=== PATIENT | male | born 1955 | race Hispanic/Latino ===

== ENCOUNTER 2017-05-07 10:27 | Inpatient (IN) | payer SELFPAY ==
[~2017-05-07] VITALS: Ht 172.7 cm; Wt 69.0 kg
--- NOTE | 2017-05-07 11:02 | NUR ---
PT AMBULATORY TO ROOM 15.
--- NOTE | 2017-05-07 12:13 | NUR ---
PT RESTING ON STRETCHER. NO NV. ADVISED OF CONTINUED WAIT TIME.
--- NOTE | 2017-05-07 13:03 | NUR ---
PT RESTING ON STRETCHER AWAITING FURTHER CARE.
[2017-05-07 13:58] LABS: HEMATOCRIT 43.7 % (39.0-50.0); IMMATURE GRANULOCYTES 0.3 % (0.0-1.0); MEAN CELL VOLUME 92.8 fL CALC (80.0-100.0); MEAN CORPUSCULAR HGB 31.8 pG CALC (26.0-32.0); MEAN CORPUSCULAR HGB CONC 34.3 g/L CALC (32.0-36.0); NEUT# 5.2 thou/uL (1.82-7.42); RED BLOOD COUNT 4.71 mill/uL (4.70-6.10); RED CELL DISTRI WIDTH 12.6 % (11.5-15.5)
[2017-05-07 14:08] LABS: URINE BILIRUBIN - DIPSTICK NEGATIVE (NEGATIVE); URINE BLOOD DIPSTICK NEGATIVE (NEGATIVE); URINE COLOR YELLOW; URINE GLUCOSE - DIPSTICK NEGATIVE (NEGATIVE); URINE KETONE NEGATIVE (NEGATIVE); URINE LEUK ESTERASE NEGATIVE (NEGATIVE); URINE NITRITE - DIPSTICK NEGATIVE (Negative); URINE PROTEIN - DIPSTICK NEGATIVE (NEG-TRACE); URINE SPECIFIC GRAVITY <=1.005; URINE UROBILINOGEN - DIPSTICK 0.2 E.U./dL (0.2)
[2017-05-07 14:11] LABS: ALBUMIN 4.6 g/dL (3.2-5.0); ALKALINE PHOSPHATASE 99 u/l (38-126); AMYLASE 70 u/l (30-110); ANION GAP 17 (6-22 (CALC)); BILIRUBIN, TOTAL 0.6 mg/dL (0.0-1.4); BUN 9 mg/dL (9-20); BUN/CREATININE RATIO 14 (12-20 (CALC)); CARBON DIOXIDE 26 mmol/l (22-30); CHLORIDE 105 mmol/l (95-108); CREATININE 0.7 mg/dL (0.7-1.3); GFR > 60 ML/MIN (>=60 (CALC)); GFR FOR AFR.AMER. > 60 ML/MIN (>=60 (CALC)); LIPASE 48 u/l (23-300); POTASSIUM 4.3 mmol/l (3.5-5.1); SGOT/AST 35 u/l (17-59); SGPT/ALT 35 u/l (21-72); SODIUM 143 mmol/l (137-146); TOTAL PROTEIN 7.5 g/dL (6.3-8.2)
[2017-05-07 14:12] LABS: URINE CLARITY CLEAR
[2017-05-07 14:21] LABS: MYOGLOBIN 30 ng/mL (0 - 121)
--- NOTE | 2017-05-07 14:51 | NUR ---
PT RETURNED FROM CT ADVISED OF WAIT TIME. IV FLUIDS CONTINUE.
--- NOTE | 2017-05-07 15:55 | NUR ---
DR WALLER SPOKE WITH DR HOUGH REGARDING PATIENT.
--- NOTE | 2017-05-07 17:14 | NUR ---
PT CONSUMING THIRD CUP OF CONTRAST. TOLERATES WELL. NO APPARENT DISTRESS. NO N/V.
--- NOTE | 2017-05-07 19:21 | NUR ---
REPORT CALLED TO THOMAS, NURSE ON MEDSUR. ADVISED OF ALL FLUIDS, PROCEDURES AND HEALTHY IV SITE.
--- NOTE | 2017-05-07 19:45 | NUR ---
PT TRANSFERRED TO FLOOR VIA STRETCHER ACCOMPANIED BY SELENA GRAY AND FAMILY;PT AMBULATED WITH STEADY GAIT TO STANDING SCALE AND BEDSIDE;WT AND VS OBTAINED;PT TRISTANIAN SPEAKING ONLY;ASSESSMENT TRANSLATED BY SELENA CORONA;ASSESSMENT COMPLETED;PT REPORTS HAVING ABDOMINAL PAIN RATING 4/10 ON THE PAIN SCALE FOR 3 DAYS;LAST BM 05/03/17;ABDOMEN IS DISTENDED AND SOFT UPON PALPATION;TENDER IN LEFT LOWER QUAD;PT DENIES NAUSEA;PAIN SCALE AND REPORTING EDUCATED AND PT VERBALIZES UNDERSTANDING;RESPIRATIONS EVEN AND UNLABORED ON RA;CLEAR LUNG SOUNDS;PT EDUCATED ON NPO DIET STATUS;#20G TO LAC FLUSHED AND PATENT,SITE APPEARS HEALTHY;PERRLA;STRONG PEDAL PULSES;SKIN INTACT;PT ORIENTED TO ROOM AND CALL LIGHT SYSTEM;URINAL AT BEDSIDE;SAFETY PRECAUTIONS REINFORCED WITH BED IN THE LOWEST POSITION;CALL LIGHT IN REACH;WILL CONTINUE TO MONITOR
--- NOTE | 2017-05-07 19:45 | NUR ---
TO FLOOR WITHOUT INCIDENT.
--- NOTE | 2017-05-07 19:50 | NUR ---
ORDER RECEIVED FOR NG TUBE PLACEMENT BY VITOR MCCONNELLRP
[2017-05-07 19:59] VITALS: BP 163/85; BP 171/88
--- NOTE | 2017-05-07 21:45 | NUR ---
#14F NG TUBE PLACED AND STARTED TO LIS;PT TOLERATED WELL;200CC OBTAINED IMMEDIATELY OF UNDIGESTED FOOD;WILL CONTINUE TO MONITOR
--- NOTE | 2017-05-07 23:55 | NUR ---
PT APPEARS TO BE SLEEPING IN SEMI FOWLERS POSITION;NO S/S OF DISTRESS NOTED;RESPIRATIONS EVEN AND UNLABORED ON RA;NG TUBE PATENT RUNNING TO LIS;SAFETY PRECAUTIONS IN PLACE;CALL LIGHT IN REACH;WILL CONTINUE TO MONITOR
--- NOTE | 2017-05-08 00:16 | NUR ---
PT COMPLAINS OF ABDOMINAL PAIN RATING 8/10 ON THE PAIN SCALE AND REQUESTS PAIN MEDICATION;ABDOMEN DISTENDED AND FIRM AT THIS TIME; NOTIFIED AND NEW ORDERS RECEIVED
--- NOTE | 2017-05-08 00:40 | NUR ---
PT MEDICATED WITH MORPHINE 4MG AND ZOFRAN 4MG IVP FOR ABDOMINAL PAIN RATING 8/10 ON THE PAIN SCALE;WILL CONTINUE TO MONITOR FOR EFFECTIVENESS
--- NOTE | 2017-05-08 03:25 | NUR ---
PT COMPLAINS OF SEVERE ABDOMINAL/BACK PAIN RATING 8/10 ON THE PAIN SCALE; NOTIFIED AND NEW ORDER RECEIVED
--- NOTE | 2017-05-08 03:40 | NUR ---
PT MEDICATED WITH DILAUDID 1MG IVP FOR ABDOMINAL/BACK PAIN RATING 8/10 ON THE PAIN SCALE;ABDOMEN TENDER;NG TUBE PATENT RUNNING AT LIS;NS INFUSING WELL TO LAC;RESPIRATIONS EVEN AND UNLABORED ON RA;COMMODE AT BEDSIDE;FALL PRECAUTIONS IN PLACE;WILL CONTINUE TO MONITOR
--- NOTE | 2017-05-08 04:05 | NUR ---
PT REPORTS THAT ABDOMINAL PAIN IS SUBSIDING NOW RATING 4/10 ON THE PAIN SCALE
--- NOTE | 2017-05-08 05:15 | NUR ---
PT APPEARS TO BE SLEEPING WITH EYES CLOSED;NO S/S OF DISTRESS NOTED;HOB IN SEMI FOWLERS POSITION WITH NG TUBE PATENT;WILL CONTINUE TO MONITOR
[2017-05-08 05:37] VITALS: BP 151/76
[2017-05-08 07:50] VITALS: BP 156/84
--- NOTE | 2017-05-08 07:50 | NUR ---
PT.UPRIGHT IN BED. PT.IS STILL NPO AND ASKING FOR WATER TO DRINK/PROVIDED MOUTH SWABS TO MOISTEN MOUTH. V/S ASSESSED. PT.C/O PAIN 8/10 IN ABDOMEN. ABD IS HARD AND DISTENDED. NG TUBE ON LIS. CALL LIGHT AT SIDE. WILL MEDICATED FOR PAIN.
--- NOTE | 2017-05-08 08:23 | NUR ---
MEDICATED PT.FOR PAIN 12/17 ORDERS PROVIDE.
--- NOTE | 2017-05-08 09:04 | NUR ---
I was informed about the consult ordered for and spoke to the INTERMEDIATE CARD TENDER, Tracey Carrington who already talked to about the consult. Spoke to her @ 0900.
--- NOTE | 2017-05-08 11:40 | NUR ---
PT.MEDICATED FOR PAIN AT THIS TIME. NG TUBE PLACEMENT CONFIRMED. SET AT LIS. PT.C/O PAIN 12/17 IN THE ABDOMEN. ASSISTED PT.UP TO BEDSIDE COMMODE, NO BM AT THIS TIME. CALL LIGHT WITHIN REACH AND PT.LEFT UPRIGHT IN BED W/LAB AT BEDSIDE.
[2017-05-08 11:52] LABS: HEMOGLOBIN 15.6 g/dl (14.0-18.0); IMMATURE GRANULOCYTES 0.2 % (0.0-1.0); MEAN CELL VOLUME 92.4 fL CALC (80.0-100.0); MEAN CORPUSCULAR HGB 31.3 pG CALC (26.0-32.0); MEAN CORPUSCULAR HGB CONC 33.9 g/L CALC (32.0-36.0); NEUT# 7.39 thou/uL (1.82-7.42); RED BLOOD COUNT 4.98 mill/uL (4.70-6.10); RED CELL DISTRI WIDTH 12.5 % (11.5-15.5)
[2017-05-08 12:04] LABS: ANION GAP 17 (6-22 (CALC)); BUN 14 mg/dL (9-20); BUN/CREATININE RATIO 22 (12-20 (CALC)); CARBON DIOXIDE 25 mmol/l (22-30); CHLORIDE 105 mmol/l (95-108); CREATININE 0.6 mg/dL (0.7-1.3); GFR > 60 ML/MIN (>=60 (CALC)); GFR FOR AFR.AMER. > 60 ML/MIN (>=60 (CALC)); POTASSIUM 3.9 mmol/l (3.5-5.1); SODIUM 144 mmol/l (137-146)
--- NOTE | 2017-05-08 12:40 | NUR ---
PT.REPORTS PAIN IS MUCH BETTER AT THIS TIME. NO S/S OF DISTRESS. CALL LIGHT W/IN REACH
--- NOTE | 2017-05-08 14:19 | NUR ---
PT.UP TO BEDSIDE COMMODE. NG TUBE DRAINING BROWN TEA COLORED DRAINAGE ON LIS. PT.REPORTS PAIN /10. WILL FOLLOW-UP WITH PAIN MEDICATIONS AVAILABLE. PT.REMAINS NPO AND HAS MOISTENED MOUTH SWABS FOR COMFORT. CALL LIGHT AT SIDE AND PT.REORIENTED ON CALLING FOR ASSISTANCE
--- NOTE | 2017-05-08 15:00 | NUR ---
PT.MEDICATED WITH PAIN MEDICATIONS FOR C/O 11/16 ABDOMINAL PAIN. NG TUBE DRAINING TEA COLORED DRAINAGE SET @ LIS.
[2017-05-08 15:40] VITALS: BP 121/65
--- NOTE | 2017-05-08 18:00 | NUR ---
ASSISTED PT.TO BEDSIDE COMMODE AND BACK TO BED. FRIENDS/FAMILY ARRIVED TO SEE PT. PT.LEFT IN BED ELEVATED W/NGT DRAINING ON LIS. CALL LIGHT IS AT SIDE.
[2017-05-08 19:00] VITALS: BP 144/69
--- NOTE | 2017-05-08 19:25 | NUR ---
REPORT RECEIVED FROM SELENA PATEL;PT RESTING IN SEMI FOWLERS POSITION WITH MULTIPLE FAMILY MEMBERS IN THE ROOM;NG TUBE PATENT RUNNING TO LIS;PT DENIES ANY NEEDS AT THIS TIME;POC DISCUSSED;CALL LIGHT IN REACH;WILL CONTINUE TO MONITOR
--- NOTE | 2017-05-08 21:30 | NUR ---
PT RESTING IN BED WITH EYES CLOSED;WAKENS TO VERBAL STIMULI;TRANSLATION OF ASSESSMENT BY RIKKI OCONNOR;PT REPORTS HAVING A LARGE/WATERY BM EARLIER THIS AFTERNOON AROUND 4PM;PT DENIES ANY ABDOMINAL PAIN CURRENTLY;ASSESSMENT COMPLETED;ABDOMEN SOFT AND NON-TENDER WITH ACTIVE BOWEL SOUNDS;COMMODE AT BEDSIDE;RESPIRATIONS EVEN AND UNLABORED ON RA,CLEAR LUNG SOUNDS;#14F NG TUBE PATENT AND RUNNING TO LIS WITH TEA COLORED DRAINAGE;PT RE-EDUCATED ON NPO DIET STATUS;#20G TO LAC INFUSING NS @ 100ML/HR WELL;ENCOURAGED AND EXPLAINED TO PT ABOUT SOAP SUDS ENEMA ORDER BUT PT REFUSES AT THIS TIME;PT VOICES NO NEEDS ;FALL PRECAUTIONS IN PLACE WITH CALL LIGHT IN REACH;WILL CONTINUE TO MONITOR
--- NOTE | 2017-05-08 23:15 | NUR ---
PT APPEARS TO BE SLEEPING IN SEMI FOWLERS POSITION;NO S/S OF DISTRESS NOTED;NG TUBE REMAINS PATENT RUNNING AT LIS;IV FLUIDS INFUSING WELL TO LAC;COMMODE AT BEDSIDE;CALL LIGHT IN REACH;WILL CONTINUE TO MONITOR
--- NOTE | 2017-05-09 04:00 | NUR ---
PT CALLED NURSE TO THE ROOM TO REPORT NG TUBE HAD COME OUT;PT VOICES NO COMPLAINTS OF PAIN OR DISCOMFORTS;ABDOMEN REMAINS SOFT ON PALPATION,WILL NOTIFY MD OF CHANGE;RESPIRATIONS EVEN AND UNLABORED ON RA;IV FLUIDS INFUSING WELL TO LAC;COMMODE AT BEDSIDE;CALL LIGHT IN REACH;WILL CONTINUE TO MONITOR
[2017-05-09 04:21] VITALS: BP 134/2
--- NOTE | 2017-05-09 05:00 | NUR ---
NOTIFED OF REMOVAL OF NG TUBE;NG TUBE TO BE LEFT OUT AT THIS TIME
[2017-05-09 05:13] LABS: HEMOGLOBIN 14.2 g/dl (14.0-18.0); IMMATURE GRANULOCYTES 0.3 % (0.0-1.0); MEAN CELL VOLUME 92.1 fL CALC (80.0-100.0); MEAN CORPUSCULAR HGB 31.9 pG CALC (26.0-32.0); MEAN CORPUSCULAR HGB CONC 34.6 g/L CALC (32.0-36.0); NEUT# 7.75 thou/uL (1.82-7.42); RED BLOOD COUNT 4.45 mill/uL (4.70-6.10); RED CELL DISTRI WIDTH 12.5 % (11.5-15.5)
[2017-05-09 05:35] LABS: ANION GAP 15 (6-22 (CALC)); BUN 18 mg/dL (9-20); BUN/CREATININE RATIO 26 (12-20 (CALC)); CARBON DIOXIDE 24 mmol/l (22-30); CHLORIDE 107 mmol/l (95-108); CREATININE 0.7 mg/dL (0.7-1.3); GFR > 60 ML/MIN (>=60 (CALC)); GFR FOR AFR.AMER. > 60 ML/MIN (>=60 (CALC)); MAGNESIUM 1.7 mg/dL (1.6-2.3); POTASSIUM 3.9 mmol/l (3.5-5.1); SODIUM 142 mmol/l (137-146)
[2017-05-09 07:05] VITALS: BP 118/54
--- NOTE | 2017-05-09 07:35 | NUR ---
ASSESSMENT IS COMPLETED: PT IS RELAXING IN BED WITH NO DISTRESS NOTED. IV SITE IS FREE FROM REDNESS OR EDEMA. TELE MONITOR IN PLACE. ABD IS SOFT TODAY.NGT CAME OUT LAST NIGHT PT DID HAVE A BM AT 1800. CONTINUE TO OSBERVE AND MONITOR
--- NOTE | 2017-05-09 07:45 | NUR ---
PT ALERT, EYES OPEN, FOLLOW COMMANDS, NO DISTRESS NOTED. FACE SYMMETRICAL, PUPILS EQUAL REACT TO LIGHT, HEART SOUNDS NORMAL, LUNGS ARE CLEAR NO WHEEZING NOTED, ABD SOFT AND NON DISTENDED, HYPOACTIVE B/S PRESENT, RADIAL AND PEDAL PULSES STRONG, SKIN WARM AND DRY NO REDNESS OR EDEMA NOTED. IV SITE INTACT NO REDNESS. PT AMBULATED THE HALLS AT 08:15AM X2, PT DID ORAL CARE AND TOOK A SHOWER, PT SITTING UP IN THE RECLINER, CALL LIGHT IN REACH. PT WAS EDUCATED TO CALL WHEN HE HAS TO HAVE A BM. WILL CONTINUE TO MONITOR
--- NOTE | 2017-05-09 09:55 | NUR ---
FLU VACCINE GIVEN TO PT ON R/ARM PT TOLERATED WELL.
--- NOTE | 2017-05-09 10:45 | NUR ---
PT WENT DOWN FOR A BARIUM ENEMA, PT TOLERATED WELL, PT BROUGHT BACK TO HIS ROOM, PT SITTING UP IN THE RECLINER TALKING ON THE PHONE. CALL LIGHT IN REACH.
--- NOTE | 2017-05-09 12:00 | NUR ---
PT'S FAMILY CAME AND INQUIRED IF HE COULD HAVE A DIET. ALSO WHEN HE WOULD BE GOING HOME. IV SITE S FREE FROM REDNESS OR EDEMA. CONTINUE TO OSBERVE AND MONITOR
--- NOTE | 2017-05-09 14:15 | NUR ---
12 FR NGT INSERTED INTO LEFT NARE PER OLIVIA WADE. PLACEMENT CHECKED BY AUSCULTATION. PLACED TO LIWS.
--- NOTE | 2017-05-09 14:15 | NUR ---
MELISSA FREEMAN CNA TRANSLATE TO PT RE:l NGT NEEDING TO BE PLACED PER DR.GIANLUCA,. VERBALIZED UNDERSTANDING.
[2017-05-09 15:41] VITALS: BP 134/68
--- NOTE | 2017-05-09 17:09 | NUR ---
HAD DARIO WALTERS COME AND TRANSLATE TO PT RE: SOAP SUDS ENEMA. PT PREFERS TO WAIT WILL LET US DO IT LATER. EXPLAINED THAT DR HOUGH WANTS TO DO A COLONOSCOPY TOMORROW. VERBALIZED UNDERSTANDING.
[2017-05-09 19:07] LABS: CHOLESTEROL HDL RATIO 3.6 (<4.4 (CALC))
--- NOTE | 2017-05-09 19:20 | NUR ---
REPORT RECEIVED FROM RIKKI ALCANTAR;PT RESTING IN BED WITH VISITORS AT BEDSIDE;PT DENIES ANY PAIN OR DISCOMFORTS;NG TUBE PATENT RUNNING TO LIS;POC DISCUSSED;FALL PRECAUTIONS IN PLACE WITH CALL LIGHT N REACH;WILL CONTINUE TO MONITOR
[2017-05-09 20:00] VITALS: BP 145/69
--- NOTE | 2017-05-09 21:40 | NUR ---
PT RESTING IN SEMI FOWLERS POSITION;A&O X3;PT VOICES NO COMPLAINTS OF PAIN;NG TUBE PATENT RUNNING TO LIS WITH TEA COLORED DRAINAGE,PT TOLERATING WELL;ASSESSMENT COMPLETED;ABDOMEN SOFT UPON PALPATION;HYPOACTIVE BOWEL SOUNDS NOTED TO LLQ;PT RE-EDUCATED ON NPO DIET STATUS;#20G TO LAC INFUSING NS @ 100ML/HR,SITE APPEARS HEALTHY;FIRST ROUND OF SOAP SUDS ENEMA STARTED,PT TOLERATED WELL;RETURN OF CLEAR FLUID OBTAINED,NO BM TO BE SEEN;WILL CONTINUE WITH ENEMAS THROUGHOUT THE NIGHT;PT VOICES NO OTHER NEEDS AND IS ENCOURAGED TO CALL FOR ASSISTANCE IF NEEDED;COMMODE AT BEDSIDE;FALL PRECAUTIONS IN PLACE;CALL LIGHT IN REACH;WILL CONTINUE TO MONITOR
--- NOTE | 2017-05-09 22:20 | NUR ---
SECOND ROUND OF SOAP SUDS ENEMA PERFORMED,PT TOLERATED WELL;LIGHT BROWN FLUID RETURNED THIS TIME;WHILE REPOSITIONING INTO BED PT PULLED OUT NG TUBE;NEW 14 FR NG TUBE INSERTED AND PLACEMENT CHECKED BY AUSCULTATION;RE-STARTED TO LIS;PT VOICES NO COMPLAINTS OF PAIN;WILL CONTINUE TO MONITOR
--- NOTE | 2017-05-10 00:15 | NUR ---
PT APPEARS TO BE SLEEPING IN SEMI FOWLERS POSITION;NO S/S OF DISTRESS NOTED;NG TUBE PATENT RUNNING TO LIS;IV FLUIDS INFUSING WELL TO LAC;FALL PRECAUTIONS IN PLACE;COMMODE AT BEDSIDE;CALL LIGHT IN REACH;WILL CONTINUE TO MONITOR
[2017-05-10 04:37] VITALS: BP 138/60
[2017-05-10 04:55] LABS: HEMATOCRIT 38.8 % (39.0-50.0); HEMOGLOBIN 13.5 g/dl (14.0-18.0); IMMATURE GRANULOCYTES 0.4 % (0.0-1.0); MEAN CELL VOLUME 91.3 fL CALC (80.0-100.0); MEAN CORPUSCULAR HGB 31.8 pG CALC (26.0-32.0); MEAN CORPUSCULAR HGB CONC 34.8 g/L CALC (32.0-36.0); NEUT# 5.3 thou/uL (1.82-7.42); RED BLOOD COUNT 4.25 mill/uL (4.70-6.10); RED CELL DISTRI WIDTH 12.5 % (11.5-15.5)
[2017-05-10 05:08] LABS: ANION GAP 15 (6-22 (CALC)); BUN 19 mg/dL (9-20); BUN/CREATININE RATIO 28 (12-20 (CALC)); CARBON DIOXIDE 23 mmol/l (22-30); CHLORIDE 106 mmol/l (95-108); CREATININE 0.7 mg/dL (0.7-1.3); GFR > 60 ML/MIN (>=60 (CALC)); GFR FOR AFR.AMER. > 60 ML/MIN (>=60 (CALC)); MAGNESIUM 1.7 mg/dL (1.6-2.3); POTASSIUM 3.5 mmol/l (3.5-5.1); SODIUM 140 mmol/l (137-146)
--- NOTE | 2017-05-10 05:15 | NUR ---
PT RESTING IN BED WATCHING TV;PT DENIES ANY ABDOMINAL PAIN THIS MORNING;RESPIRATIONS EVEN AND UNLABORED ON RA;NG TUBE PATENT RUNNING TO LIS,PT TOLERATING WELL;BAG #2 SOAP AGUSTINA ENEMA COMPLETED;BROWN TINGED FLUID RETURNED;IV FLUIDS INFUSING WELL;COMMODE AT BEDSIDE;PT ENCOURAGED TO CALL FOR ASSISTANCE IF NEEDED;FALL PRECAUTIONS IN PLACE;CALL LIGHT IN REACH
[2017-05-10 08:40] VITALS: BP 146/62
--- NOTE | 2017-05-10 10:26 | NUR ---
DR. HUERTA IN TO SEE PT; GANESH FREEMAN PRESENT INTERPRETOR; PLAN OF CARE DISCUSSED
--- NOTE | 2017-05-10 12:28 | NUR ---
PT TO OR VIA STRETCHER ACCOMPANIED BY STAFF
--- NOTE | 2017-05-10 13:38 | NUR ---
PT RETURN FROM OR VIA WC ACCOMPANIED BY STAFF; PROCEDURE NOT COMPLETED D/T PT NEEDING TO HAVE COMPLETE CARDIAC WORKUP BEFORE UNDERGOING ANESTHIA; PT A/O X3; GANESH FREEMAN PRESENT INTERPRETOR; PT DENIES PAIN; NGT REMOVED ORDERED; TELE MONITOR PLACE ON PT, PER ELAYNE BONILLA LPN PT SB 48; IVF INFUSING WITHOUT DIFFICULTY, NO REDNESS OR EDEMA AT SITE; PT WILL BE STARTED ON CLEAR LIQ DIET ORDERED; CALL CROSS WITHIN REACH; WILL CONTINUE TO MONITOR.
--- NOTE | 2017-05-10 14:15 | NUR ---
PT TOLERATING CLEAR LIQ DIET WELL; DENIES PAIN; CALL CROSS WITHIN REACH; WILL CONTINUE TO MONITOR.
[2017-05-10 15:31] VITALS: BP 119/62
--- NOTE | 2017-05-10 16:07 | NUR ---
PT WATCHING TV; NO COMPLAINTS VOICED; CALL CROSS WITHIN REACH; WILL CONTINUE TO MONITOR.
--- NOTE | 2017-05-10 16:21 | NUR ---
Patient is feeling good and denied any side effects. c
[2017-05-10 18:00] VITALS: BP 142/70
--- NOTE | 2017-05-10 19:38 | NUR ---
PT SITTING UP IN BED WATCHING TV; ALERT AND ORIENTED; SLOVENIAN SPEAKING. DENIES PAIN CURRENTLY. RESPIRATIONS EVEN AND UNLABORED ON ROOM AIR; LUNGS CLEAR. BOWEL SOUNDS ARE ACTIVE; DENIES ABDOMINAL TENDERNESS. PLAN OF CARE DISCUSSED. PT ENCOURAGED TO VERBALIZE CONCERNS. HAS QUESTIONS ABOUT HIS DISCHARGE; QUESTIONS ANSWERED TO SATISFACTION. RISSA LARRY PBX MANAGER. SAFETY MEASURES IN PLACE. CALL LIGHT SYSTEM REVIEWED AND IN REACH.
[2017-05-11] VITALS: BP 134/70
--- NOTE | 2017-05-11 00:31 | NUR ---
PT AWAKE AND WATCHING TV. CONTINUES TO DENY PAIN OR DISCOMFORT. RESPIRATIONS EVEN AND UNLABORED. IV FLUIDS INFUSING WITHOUT DIFFICUTLY; IV SITE APPEARS HEALTHY. ABT INFUSED WITH NO ADVERSE EFFECTS NOTED; AFEBRILE. PT HAS NO REQUESTS AT THIS TIME. WHEN ASKED IF HE NEEDS TO USE THE RESTROOM PT STATES THAT HE WENT TO THE BATHROOM INDEPENDENLTY. REMINDED TO CALL NURSE FOR ASSISTANCE HE IS A FALL RISK. STATES UNDERSTANDING. SCRUM PROJECT MANAGER CALLED NURSE FOR CHANGE IN HEART RHYTHM. EKG ORDERED. SAFETY MEASURES IN PLACE. CALL LIGHT WITHIN REACH.
[2017-05-11 04:00] VITALS: BP 134/60
--- NOTE | 2017-05-11 04:42 | NUR ---
IV SITE TO LAC LEAKY; DRESSING CHANGED. PT USED URINAL TO VOID THROUGHOUT THE NIGHT. DID NOT SLEEP MUCH, WAS ON THE PHONE MOST OF THE NIGHT. CONTINUES TO DENY PAIN. RESPIRATIONS EVEN AND UNLABORED ON ROOM AIR. SINUS BRADYCARDIA CONTINUES; PT ASYMPTOMATIC THROUGHOUT THE NIGHT. NO ACUTE CHANGES IN CONDITION. SAFETY MEASURES IN PLACE. CALL LIGHT WITHIN REACH.
[2017-05-11 05:32] LABS: HEMATOCRIT 38.1 % (39.0-50.0); HEMOGLOBIN 13.2 g/dl (14.0-18.0); IMMATURE GRANULOCYTES 0.2 % (0.0-1.0); MEAN CELL VOLUME 91.4 fL CALC (80.0-100.0); MEAN CORPUSCULAR HGB 31.7 pG CALC (26.0-32.0); MEAN CORPUSCULAR HGB CONC 34.6 g/L CALC (32.0-36.0); NEUT# 2.17 thou/uL (1.82-7.42); RED BLOOD COUNT 4.17 mill/uL (4.70-6.10); RED CELL DISTRI WIDTH 12.4 % (11.5-15.5)
[2017-05-11 07:25] VITALS: BP 156/70
--- NOTE | 2017-05-11 07:35 | NUR ---
INTRODUCED SELF TO PT AT THIS TIME. PT ASSESSMENT COMPLETED. RADIAL PULSE SB 40 EVEN RYTHM W/ NO COMPLAINT OF PAIN , AMANDA WALTERS NOTOFIED. RESPIRATIONS ARE EVEN AND UNLABORED W/ CLEAR BILATERAL LUNG SOUNDS. SKIN IS INTACT, WARM AND DRY. THERE IS A SLIGHT LANGUAGE BARRIER DUE TO THE PT ONLY ABLE TO SPEAK VERY LITTLE JAPANESE. PT STATES THAT HE HAS PAIN OF 1/10 TO LLQ . PT WAS REPOSITIONED FOR COMFORT. BOWEL SOUNDS ARE CLEAR AND ACTIVE. ABD IS SOFT AND NONDISTENDED. WILL CONTINUE TO MONITOR.
--- NOTE | 2017-05-11 08:47 | NUR ---
PT.IS SMILING WHEN I ENTER THE ROOM. DENIES PAIN, NO S/S OF DISTRESS. PT.IS ASKING TO GET IN THE SHOWER. HE IS BEING ASSISTED WITH THAT NOW.
--- NOTE | 2017-05-11 11:10 | NUR ---
PT.MEDICATED ORDERS PROVIDE. DENIES ANY NEEDS AT THIS TIME. PT.UP TO RESTROOM, DID NOT USE URINAL. SHOWED PT URINAL AND RE-EXPLAINED THAT WE NEED TO MEASURE URINE.
[2017-05-11 11:18] VITALS: BP 135/68
[2017-05-11] MEDS ORDERED: METRONIDAZOL500 MG PO (14:12)
[2017-05-11] MEDS ORDERED: CIPROFLOXACN500 MG PO (14:12)
[2017-05-11 15:52] VITALS: BP 135/72
--- NOTE | 2017-05-11 16:46 | NUR ---
PT.IV REMOVED INTACT/SITE APPEARS HEALTHY, CAREER CONSULTANT REMOVED/ED NOTIFIED IN ADVANCE. PT.DISCHARGED OFF UNIT FLOOR TO FOLLOW-UP WITH HEALTH DEPT.AND , IN GOOD CONDITION. PT.SELF AMUBLATED OFF FLOOR ACCOMPANIED BY LIONEL.
== END 2017-05-11 16:40 | disposition home or self-care (01) | DRG 390 ==
LOC: ED 10:27 → ED-I 18:35 → ED 18:49 → MS2 18:50
PROVIDERS: Emergency Medicine; Nurse Practitioner Family; ADMIT Internal Medicine; ATTEND Internal Medicine
PROC: 3E0234Z Introduction of Serum, Toxoid and Vaccine into Muscle, Percutaneous Approach (ICD-10-PCS; principal; 2017-05-09)
DX: K56.609 Unspecified intestinal obstruction, unspecified as to partial versus complete obstruction (principal); F17.210 Nicotine dependence, cigarettes, uncomplicated; I10 Essential (primary) hypertension; R00.1 Bradycardia, unspecified; Z53.09 Procedure and treatment not carried out because of other contraindication; Z23 Encounter for immunization
CPT/HCPCS: Q9967; S0164